=== PATIENT | female | born 1950 | race Caucasian/White ===

== ENCOUNTER 2020-01-31 13:19 | Inpatient (IN) | payer MEDICARE, MEDICAID ==
[~2020-01-31] VITALS: Ht 149.9 cm; Wt 53.5 kg
[2020-01-31] MEDS ORDERED: DULO20CA27 PO (14:32)
[2020-01-31] MEDS ORDERED: MULT1CAP32 PO (14:32)
[2020-01-31 15:01] LABS: BASOPHILS % (AUTO) 0.4 % (0.0-2.0); EOSINOPHILS % (AUTO) 0.2 % (1.0-6.0); HEMATOCRIT 35.7 % (36-46); HEMOGLOBIN 12.2 g/dL (12.0-16.0); LYMPHOCYTES # (AUTO) 1.6 K/uL (1.0-4.8); LYMPHOCYTES % (AUTO) 22.5 % (22.0-44.0); MEAN CORPUSCULAR HEMOGLOBIN 31.2 pg (26.0-34.0); MEAN CORPUSCULAR HGB CONC 34.1 G/dL (31.0-37.0); MEAN CORPUSCULAR VOLUME 92 fL (80-100); MONOCYTES # (AUTO) 0.7 K/uL (0.1-1.0); MONOCYTES % (AUTO) 9.4 % (2.0-9.0); NEUTROPHILS # (AUTO) 4.7 K/uL (1.8-7.7); NEUTROPHILS % (AUTO) 67.5 % (40.0-70.0); PLATELET COUNT (AUTO) 278 K/uL (150-450); RED BLOOD CELL COUNT(AUTO) 3.89 MIL/uL (4.00-5.20); RED CELL DISTRIBUTION WIDTH 13.8 % (11.5-14.5)
[2020-01-31 15:05] LABS: ANION GAP 3 mmol/L (8-16); CALCIUM, TOTAL 9.5 mg/dL (8.8-10.5); CARBON DIOXIDE 31 mmol/L (22-29); CHLORIDE 104 mmol/L (98-107); CREATININE 0.73 mg/dL (0.60-1.30); GLOMERULAR FILTR. RATE CALC > 60 mL/min (>60); GLUCOSE,RANDOM 92 mg/dL (70-110); SODIUM SERUM 138 mmol/L (136-145); UREA NITROGEN, BLOOD 15 mg/dL (7-18)
[2020-01-31 15:10] LABS: ALANINE AMINOTRANSFERASE 52 U/L (12-78); ALBUMIN 3.4 g/dL (3.4-5.0); ALKALINE PHOSPHATASE 169 U/L (46-116); ASPARTATE AMINOTRANSFERASE 24 U/L (15-37); BILIRUBIN,TOTAL 0.4 mg/dL (0.1-1.0); TOTAL PROTEIN, SERUM 6.9 g/dL (6.4-8.2)
[2020-01-31 15:22] LABS: AMPHET/METH SCREEN,URINE NEGATIVE (NEGATIVE); BARBITURATE SCREEN, URINE NEGATIVE (NEGATIVE); BENZODIAZEPINES SCREEN,URINE NEGATIVE (NEGATIVE); CANNABINOID SCREEN,URINE NEGATIVE (NEGATIVE); COCAINE SCREEN,URINE NEGATIVE (NEGATIVE); METHADONE SCREEN, URINE NEGATIVE (NEGATIVE); OPIATE SCREEN,URINE NEGATIVE (NEGATIVE); PHENCYCLIDINE SCREEN,URINE NEGATIVE (NEGATIVE)
[2020-01-31] MEDS: LORazepam 2 MG TABLET PO PRN (19:28)
[2020-01-31 21:02] LABS: COVID AG,FIA SOURCE NASOPHARYNGEAL
[2020-02-01 01:30] VITALS: BP 130/71
[2020-02-01] MEDS ORDERED: PNEUMOCOCCAL VACCINE POLYVALENT 0.5 ML VIAL [PPSV23] IM ONE (01:30)
[2020-02-01] MEDS ORDERED: INFLUENZA VIRUS VACCINE QVS 2020-21 (6MO+)/PF 60 MCG/0.5 ML SYRINGE IM ONE (01:30)
[2020-02-01] MEDS ORDERED: ONDANSETRON HCL 4 MG TABLET PO PRN (07:45)
[2020-02-01] MEDS ORDERED: PETROLATUM,WHITE 28 GM JELLY TP PRN (07:45)
[2020-02-01] MEDS ORDERED: NICOTINE 14 MG/24 HOUR PATCH TD PRN (07:45)
[2020-02-01] MEDS ORDERED: MAGNESIUM HYDROXIDE SUSPENSION 30 ML UDCUP PO PRN (07:45)
[2020-02-01] MEDS ORDERED: CloNIDine HCL 0.1 MG TABLET PO PRN (07:45)
[2020-02-01] MEDS ORDERED: LOPERAMIDE HCL 2 MG CAPSULE PO PRN (07:45)
[2020-02-01] MEDS ORDERED: ACETAMINOPHEN 325 MG TABLET PO PRN (07:45)
[2020-02-01] MEDS ORDERED: DOCUSATE SODIUM 100 MG CAPSULE PO PRN (07:45)
[2020-02-01] MEDS ORDERED: ALBUTEROL SULFATE HFA 90 MCG/PUFF 8 GM INHALER IH PRN (07:45)
[2020-02-01] MEDS ORDERED: MAG HYDROX/AL HYDROX/SIMETH ES 30 ML SUSPENSION UDCUP PO PRN (07:45)
[2020-02-01] MEDS: DULoxetine HCL 20 MG CAPSULE PO SCH ×2 (12:00→12:48)
[2020-02-01] MEDS: ARIPiprazole 5 MG TABLET PO SCH ×2 (12:00→12:48)
[2020-02-01] MEDS ORDERED: LORazepam 2 MG/ML VIAL ONE (13:05)
[2020-02-01] MEDS ORDERED: DiphenhydrAMINE HCL 50 MG/ML VIAL ONE (13:09)
[2020-02-01] MEDS ORDERED: HALOPERIDOL LACTATE 5 MG/ML VIAL IM ONE (13:15)
[2020-02-01] MEDS ORDERED: DiphenhydrAMINE HCL 50 MG/ML VIAL IM ONE (13:15)
[2020-02-01] MEDS ORDERED: LORazepam 2 MG/ML VIAL IM ONE (13:15)
[2020-02-02 01:11] VITALS: BP 125/76
[2020-02-02] MEDS: HALOPERIDOL 5 MG TABLET PO PRN (03:34)
[2020-02-02] MEDS: LORazepam 2 MG TABLET PO PRN ×2 (03:34→08:32)
[2020-02-02 08:08] VITALS: BP 116/70
[2020-02-02] MEDS: ARIPiprazole 5 MG TABLET PO SCH (08:32)
[2020-02-02] MEDS: DULoxetine HCL 20 MG CAPSULE PO SCH (08:33)
[2020-02-02 16:02] VITALS: BP 108/63
[2020-02-03 03:45] VITALS: BP 110/73
[2020-02-03 08:13] VITALS: BP 119/80
[2020-02-03] MEDS: DULoxetine HCL 20 MG CAPSULE PO SCH (08:17)
[2020-02-03] MEDS: ARIPiprazole 5 MG TABLET PO SCH (08:17)
[2020-02-03 16:08] VITALS: BP 116/79
[2020-02-03] MEDS: HALOPERIDOL 5 MG TABLET PO PRN (20:36)
[2020-02-03] MEDS: LORazepam 2 MG TABLET PO PRN (20:36)
[2020-02-04 00:07] VITALS: BP 110/74
[2020-02-04 08:04] VITALS: BP 126/54
[2020-02-04] MEDS: DULoxetine HCL 20 MG CAPSULE PO SCH (08:23)
[2020-02-04] MEDS: ARIPiprazole 5 MG TABLET PO SCH (08:23)
[2020-02-04] MEDS: LORazepam 2 MG TABLET PO PRN ×2 (08:24→16:58)
[2020-02-04 16:14] VITALS: BP 123/57
[2020-02-05 00:22] VITALS: BP 120/63
[2020-02-05] MEDS: LORazepam 2 MG TABLET PO PRN ×2 (07:54→12:14)
[2020-02-05 08:03] VITALS: BP 137/71
[2020-02-05] MEDS: DULoxetine HCL 20 MG CAPSULE PO SCH (08:09)
[2020-02-05] MEDS: ARIPiprazole 5 MG TABLET PO SCH (08:09)
[2020-02-05] MEDS: HALOPERIDOL 5 MG TABLET PO PRN (15:41)
[2020-02-05 16:00] VITALS: BP 140/76
[2020-02-06 01:44] VITALS: BP 107/57
[2020-02-06] MEDS ORDERED: LORazepam 2 MG/ML VIAL ONE (07:58)
[2020-02-06] MEDS ORDERED: DiphenhydrAMINE HCL 50 MG/ML VIAL IM ONE (08:00)
[2020-02-06] MEDS ORDERED: HALOPERIDOL LACTATE 5 MG/ML VIAL IM ONE (08:00)
[2020-02-06] MEDS ORDERED: LORazepam 2 MG/ML VIAL IM ONE (08:00)
[2020-02-06] MEDS: DULoxetine HCL 20 MG CAPSULE PO SCH (08:50)
[2020-02-06] MEDS: ARIPiprazole 5 MG TABLET PO SCH (08:50)
[2020-02-06] MEDS: MULTIVITAMINS WITH MINERALS, THERAPEUTIC TABLET PO SCH (08:51)
[2020-02-06] MEDS: LORazepam 2 MG TABLET PO PRN (16:26)
[2020-02-06] MEDS: ZOLPIDEM TARTRATE 10 MG TABLET PO PRN (21:12)
[2020-02-07 00:32] VITALS: BP 102/62
[2020-02-07] MEDS: LORazepam 2 MG TABLET PO PRN ×2 (00:57→08:16)
[2020-02-07 08:13] VITALS: BP 128/60
[2020-02-07] MEDS: ARIPiprazole 10 MG TABLET PO SCH (08:15)
[2020-02-07] MEDS: MULTIVITAMINS WITH MINERALS, THERAPEUTIC TABLET PO SCH (08:16)
[2020-02-07] MEDS: DULoxetine HCL 20 MG CAPSULE PO SCH (08:16)
[2020-02-07] MEDS: HALOPERIDOL 5 MG TABLET PO PRN (08:16)
[2020-02-07] MEDS ORDERED: DiphenhydrAMINE HCL 50 MG/ML VIAL ONE (09:55)
[2020-02-07] MEDS ORDERED: HALOPERIDOL LACTATE 5 MG/ML VIAL ONE (09:55)
[2020-02-07] MEDS ORDERED: LORazepam 2 MG/ML VIAL ONE (09:55)
[2020-02-07] MEDS ORDERED: LORazepam 2 MG/ML VIAL IM ONE (10:00)
[2020-02-07] MEDS ORDERED: DiphenhydrAMINE HCL 50 MG/ML VIAL IM ONE (10:00)
[2020-02-07] MEDS ORDERED: HALOPERIDOL LACTATE 5 MG/ML VIAL IM ONE (10:00)
[2020-02-07] MEDS: ZOLPIDEM TARTRATE 10 MG TABLET PO PRN (20:32)
[2020-02-08] MEDS: LORazepam 2 MG TABLET PO PRN ×3 (00:25→16:55)
[2020-02-08 00:35] VITALS: BP 120/62
[2020-02-08] MEDS: ARIPiprazole 10 MG TABLET PO SCH (08:16)
[2020-02-08] MEDS: MULTIVITAMINS WITH MINERALS, THERAPEUTIC TABLET PO SCH (08:16)
[2020-02-08 08:17] VITALS: BP 125/66
[2020-02-08] MEDS: DULoxetine HCL 20 MG CAPSULE PO SCH (08:17)
[2020-02-08] MEDS: DIVALPROEX SODIUM 500 MG DR TABLET PO SCH ×2 (10:20→20:42)
[2020-02-08 16:04] VITALS: BP 126/80
[2020-02-08] MEDS: HALOPERIDOL 5 MG TABLET PO PRN (16:55)
[2020-02-09 00:25] VITALS: BP 120/78
[2020-02-09] MEDS: LORazepam 2 MG TABLET PO PRN ×2 (03:46→08:27)
[2020-02-09] MEDS: IBUPROFEN 400 MG TABLET PO PRN (03:46)
[2020-02-09] MEDS: HALOPERIDOL 5 MG TABLET PO PRN (03:46)
[2020-02-09 08:03] VITALS: BP 124/68
[2020-02-09] MEDS: MULTIVITAMINS WITH MINERALS, THERAPEUTIC TABLET PO SCH (08:26)
[2020-02-09] MEDS: ARIPiprazole 10 MG TABLET PO SCH (08:26)
[2020-02-09] MEDS: DIVALPROEX SODIUM 500 MG DR TABLET PO SCH ×2 (08:26→20:07)
[2020-02-09] MEDS: DULoxetine HCL 20 MG CAPSULE PO SCH (08:27)
[2020-02-09 16:03] VITALS: BP 124/66
[2020-02-09 23:51] VITALS: BP 120/69
[2020-02-10] MEDS: LORazepam 2 MG TABLET PO PRN ×3 (00:04→17:16)
[2020-02-10] MEDS: HALOPERIDOL 5 MG TABLET PO PRN (00:04)
[2020-02-10] MEDS: IBUPROFEN 400 MG TABLET PO PRN ×2 (04:04→16:34)
[2020-02-10 08:02] VITALS: BP 114/67
[2020-02-10] MEDS: DIVALPROEX SODIUM 500 MG DR TABLET PO SCH ×2 (08:05→20:18)
[2020-02-10] MEDS: MULTIVITAMINS WITH MINERALS, THERAPEUTIC TABLET PO SCH (08:05)
[2020-02-10] MEDS: ARIPiprazole 10 MG TABLET PO SCH (08:05)
[2020-02-10] MEDS: DULoxetine HCL 20 MG CAPSULE PO SCH (08:06)
[2020-02-10 17:27] VITALS: BP 134/78
[2020-02-11 00:39] VITALS: BP 126/74
[2020-02-11 08:00] VITALS: BP 109/63
[2020-02-11] MEDS: ARIPiprazole 10 MG TABLET PO SCH (08:37)
[2020-02-11] MEDS: LORazepam 2 MG TABLET PO PRN (08:49)
[2020-02-11] MEDS: HALOPERIDOL 5 MG TABLET PO PRN (08:49)
[2020-02-11] MEDS: DIVALPROEX SODIUM 500 MG DR TABLET PO SCH ×3 (08:50→21:50)
[2020-02-11] MEDS: DULoxetine HCL 20 MG CAPSULE PO SCH (08:51)
[2020-02-11] MEDS: MULTIVITAMINS WITH MINERALS, THERAPEUTIC TABLET PO SCH (08:51)
[2020-02-11 16:12] VITALS: BP 143/72
[2020-02-12] MEDS: DULoxetine HCL 20 MG CAPSULE PO SCH (07:53)
[2020-02-12] MEDS: DIVALPROEX SODIUM 500 MG DR TABLET PO SCH ×2 (07:53→20:01)
[2020-02-12] MEDS: ARIPiprazole 10 MG TABLET PO SCH (07:53)
[2020-02-12] MEDS: MULTIVITAMINS WITH MINERALS, THERAPEUTIC TABLET PO SCH (07:54)
[2020-02-12] MEDS: LORazepam 2 MG TABLET PO PRN ×2 (07:54→17:51)
[2020-02-12 08:01] VITALS: BP 123/63
[2020-02-12] MEDS: IBUPROFEN 400 MG TABLET PO PRN ×2 (10:39→17:49)
[2020-02-12 16:11] VITALS: BP 111/63
[2020-02-13 00:17] VITALS: BP 105/66
[2020-02-13] MEDS ORDERED: DULO20CA27 PO (08:26)
[2020-02-13] MEDS ORDERED: DIVA-112 PO (08:26)
[2020-02-13] MEDS: ARIPiprazole 10 MG TABLET PO SCH (09:37)
[2020-02-13] MEDS: MULTIVITAMINS WITH MINERALS, THERAPEUTIC TABLET PO SCH (09:38)
[2020-02-13] MEDS: DULoxetine HCL 20 MG CAPSULE PO SCH (09:38)
[2020-02-13] MEDS: DIVALPROEX SODIUM 500 MG DR TABLET PO SCH (09:38)
== END 2020-02-13 13:30 | disposition home or self-care (01) | DRG 750 ==
LOC: EMS 13:19 → B3A 19:06
DX: F25.0 Schizoaffective disorder, bipolar type (principal); E78.00 Pure hypercholesterolemia, unspecified; E78.5 Hyperlipidemia, unspecified; I10 Essential (primary) hypertension; K59.00 Constipation, unspecified; M19.90 Unspecified osteoarthritis, unspecified site; R45.851 Suicidal ideations; Z20.828 Contact with and (suspected) exposure to other viral communicable diseases; F99 Mental disorder, not otherwise specified; Z59.0 Homelessness; Z79.899 Other long term (current) drug therapy; Z28.21 Immunization not carried out because of patient refusal
CPT/HCPCS: 87426; 90686; 90732; G0480; J1200; J1630; J2060